=== PATIENT | male | born 1970 | race Caucasian/White ===

== ENCOUNTER 2016-11-06 20:56 | Emergency (ER) | payer MEDICAID, OTHER ==
--- NOTE | 2016-11-06 21:17 | ER Document Report ---
ED Medical Screen (RME) - General Chief Complaint: Chest Pain Stated Complaint: CHEST PAIN Time seen by provider: 21:14 Mode of Arrival: Medic Information source: Patient Notes: 46-year-old male presents to ED chest pain shortness of breath that started at 4 PM and has been intermittent. States she did not get any relief from his aspirin and nitroglycerin or his done in EMS. I have greeted and performed a rapid initial assessment of this patient. A comprehensive ED assessment and evaluation of the patient, analysis of test results and completion of medical decision making process will be conducted by an additional ED providers. TRAVEL OUTSIDE OF THE [place] IN LAST 30 DAYS: No - Related Data Allergies/Adverse Reactions: No Known Allergies Allergy (Verified 01/05/16 13:39) Past Medical History - Past Medical History Cardiac Medical History: Denies: Hx Heart Attack, Hx Hypertension Pulmonary Medical History: Reports: Hx Bronchitis, Hx COPD Neurological Medical History: Denies: Hx Seizures Endocrine Medical History: Denies: Hx Diabetes Mellitus Type 1, Hx Diabetes Mellitus Type 2 GI Medical History: Reports: Hx Hepatitis - Hep C.. Denies: Hx Gastroesophageal Reflux Disease Musculoskeltal Medical History: Reports Hx Musculoskeletal Trauma Psychiatric Medical History: Reports: Hx Bipolar Disorder, Hx Depression - manic Traumatic Medical History: Reports: Hx Fractures Infectious Medical History: Reports: Hx Hepatitis - Hep C. - Immunizations Immunizations up to date: Yes Hx Diphtheria, Pertussis, Tetanus Vaccination: Yes
[2016-11-06 21:18] VITALS: BP 131/92
--- NOTE | 2016-11-07 08:14 | EKG REPORT ---
SEVERITY:- OTHERWISE NORMAL ECG - SINUS RHYTHM BORDERLINE LEFT AXIS DEVIATION : Confirmed by: Fede Vargas MD 07-Nov-2016 08:14:08
== END 2016-11-06 23:59 | disposition left against medical advice (07) ==
LOC: ER 20:56
DX: Z53.9 Procedure and treatment not carried out, unspecified reason (principal); R07.9 Chest pain, unspecified; R06.02 Shortness of breath
CPT/HCPCS: 71010; 93005; 93010; 99281